=== PATIENT | male | born 1960 | race Caucasian/White ===

== ENCOUNTER → 2021-11-15 | Outpatient (CLI) | payer BC | END | disposition home or self-care (01) | LOC: LABWHC1 12:16 | PROVIDERS: ATTEND Internal Medicine | DX: Z20.822 Contact with and (suspected) exposure to COVID-19 (principal); R05.9 Cough, unspecified | CPT/HCPCS: U0003; C9803; U0005 ==

== ENCOUNTER → 2023-10-09 | Outpatient (CLI) | payer BC ==
--- NOTE | 2023-10-09 13:05 | US ---
EXAMINATION TYPE: US kidneys/renal and bladder DATE OF EXAM: 10/09/2023 COMPARISON: NONE CLINICAL INDICATION: Male, 63 years old with history of R31.9 HEMATURIA, UNSPECIFIED; Right flank diana n and microscopic hematuria EXAM MEASUREMENTS: Right Kidney: 11.5 x 6.4 x 5.3 cm Left Kidney: 11.5 x 5.7 x 5.1 cm Post Void Residual Volume: 0 mL Right Kidney: Hyperechoic focus noted laterally measuring 0.9 cm Left Kidney: Appears wnl Bladder: Anechoic; not fully distended Bilateral Jets seen: No Normal Post Void Residual: Yes There is no evidence for hydronephrosis at this point in time. No nephrolithiasis is seen. No tahmina s are identified. The urinary bladder is anechoic. Bilateral ureteral jets are seen. IMPRESSION: 1. Nonobstructing right renal stone.
== END | disposition home or self-care (01) ==
LOC: RADUSWWP 11:38
PROVIDERS: ATTEND Internal Medicine
DX: N20.0 Calculus of kidney (principal); R31.9 Hematuria, unspecified
CPT/HCPCS: 76770